=== PATIENT | female | born 1950 | race Caucasian/White ===

== ENCOUNTER 2025-06-22 13:08 | Outpatient (CLI) | payer BC ==
--- NOTE | 2025-06-22 14:47 | VASCULAR REPORT ---
BILATERAL LOWER EXTREMITY ARTERIAL DUPLEX ULTRASOUND STUDY: REASON FOR EXAM: Left heel wound. Bilateral leg weakness. TECHNIQUE: The full lengths of the arterial segments were evaluated with color- flow Doppler ultrasound. Suspected abnormalities were evaluated with pearce scale ultrasound. 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 Spectral waveforms with velocity measurements were obtained 2 to 4 cm central to any areas of significant stenosis. Common femoral, superficial femoral, popliteal, posterior tibial, peroneal, anterior tibial, and dorsal pedal arteries were evaluated. FINDINGS: Right: There is moderate diffuse atherosclerotic plaque throughout the right lower extremity. The common femoral artery waveform is multiphasic with a brisk upstroke. The superficial femoral and popliteal arteries are patent with multiphasic waveforms. The posterior tibial, peroneal, anterior tibial, and dorsalis pedis arteries are patent with multiphasic waveforms. Left: There is moderate diffuse atherosclerotic plaque throughout the left lower extremity. The common femoral artery waveform is multiphasic with a brisk upstroke. The superficial femoral and popliteal arteries are patent with multiphasic waveforms. The posterior tibial, peroneal, anterior tibial, and dorsalis pedis arteries are patent with multiphasic waveforms. IMPRESSION: No hemodynamically significant stenosis.
--- NOTE | 2025-06-22 15:03 | VASCULAR REPORT ---
[facility] Vascular Department [facility] [address] [place] [address] [email or web address] VARGAS ISIAH Name : TRINI HINSON Date : 06/22/2025 BILL Birthdate : 1950 [facility] Sex : F Age : 74Y Silo Tender : Rochelle Puga RDMS/RVT Referring Dr. : TSYON CARTER, Preliminary Report The above named patient was referred for a PHYSIOLOGIC ARTERIAL DOPPLER EVALUATION. The evaluation includes blood pressures, ankle brachial indices (LIZZY), and segmental Doppler waveform analysis at rest and post exercise when applicable. Toe brachial indices (TBI) taken when necessary. Patient IN-PATIENT Enaation: Ankle to Brachial Index IndYeations Left heel wound, leg weakness bilaterally Pressures/Indices Right LIZZY Lef AB Brachial 100mmHg Brachial 110mmHg Ankle(PT) 126mmHg 1.15 Ankle(PT) 100mmHg 0.90 Ankle(DP) 130mmHg 1.1 Ankle(DP) 110mmHg 1.0 Impression: Multiphasic bilaterally. Right LIZZY at rest 1.18, Left LIZZY at rest 1.0 indicating normal bilaterally
== END 2025-06-22 23:59 | disposition home or self-care (01) ==
LOC: VAS 13:08
DX: I70.203 Unspecified atherosclerosis of native arteries of extremities, bilateral legs (principal); L97.909 Non-pressure chronic ulcer of unspecified part of unspecified lower leg with unspecified severity
CPT/HCPCS: 93922; 93925